=== PATIENT | female | born 1975 | race African-American/Black ===

== ENCOUNTER 2020-09-18 21:43 | Emergency (ER) | payer OTHER ==
[~2020-09-18] VITALS: Ht 162.6 cm; Wt 102.1 kg
[~2020-09-18 21:43] MED LIST: AFEDITAB CR30 MG PO; ASPIRIN325 PO; CARVEDILOL25 MG PO; COREG25 MG PO; DIPHENHIST50 MG PO; HYDRALAZINE 2525 MG PO; HYDROCHLOROTHIA25 M1 PO; LASIX 20 MG TAB20 MG PO; NIFEDIPINE ER30 M1 PO; NORVASC5 MG PO
[2020-09-18 21:57] VITALS: BP 120/72
[2020-09-18 22:32] LABS: CALCIUM 8.5 mg/dL (8.5-10.1); CREATININE 1.4 mg/dL (0.6-1.0)
[2020-09-18 22:33] LABS: POTASSIUM 4.2 mmol/L (3.5-5.1)
[2020-09-18 22:40] LABS: ALBUMIN 3.2 g/dL (3.4-5.0); TOTAL BILIRUBIN 0.3 mg/dL (0.2-1.0); TOTAL PROTEIN 6.9 g/dL (6.4-8.2)
[2020-09-18 22:41] LABS: TROPONIN-I 0.61 ng/mL (<0.06)
[2020-09-18 23:48] LABS: BE(vivo) -4.4 mmol/L (-2 to +3); HCO3 19.6 mmol/L (22.0-26.0); PCO2 31.6 mmHg (35.0-45.0); PO2 263.9 mmHg (80.0-100.0); pH 7.411 (7.360-7.450); sO2 99.6 % (92.0-98.0)
[2020-09-19 00:38] LABS: PROTIME 10.1 Seconds (9.3-11.4)
[2020-09-19 00:50] LABS: ABSOLUTE NEUTROPHILS 5.9 thou/uL (1.4-8.2); EOSINOPHILS 0.2 % (0.0-3.0); HEMATOCRIT 27.7 % (37.0-47.0); HEMOGLOBIN 8.2 gm/dL (12.0-15.0); LYMPHOCYTES 7.1 % (24.0-44.0); MCH 23.2 pg (26.0-34.0); MCHC 29.7 g/dL (28.0-37.0); MCV 78.3 fL (80.0-100.0); MONOCYTES 3.3 % (1.0-8.0); PLATELET COUNT 308 thou/uL (150-400); POLYS 88.4 % (36.0-66.0); RBC 3.54 mil/uL (4.20-5.00); WBC 6.7 thou/uL (4.0-11.0)
[2020-09-19 05:57] LABS: HEMATOCRIT 23.3 % (37.0-47.0); HEMOGLOBIN 7.2 gm/dL (12.0-15.0); MCH 23.2 pg (26.0-34.0); MCHC 31.1 g/dL (28.0-37.0); MCV 74.8 fL (80.0-100.0); RBC 3.11 mil/uL (4.20-5.00); RDW 18.7 % (10.5-14.5); WBC 7.1 thou/uL (4.0-11.0)
[2020-09-19 06:28] LABS: CALCIUM 8.5 mg/dL (8.5-10.1); CREATININE 1.5 mg/dL (0.6-1.0); POTASSIUM 3.4 mmol/L (3.5-5.1)
[2020-09-19 07:08] LABS: TROPONIN-I 1.14 ng/mL (<0.06)
--- NOTE | 2020-09-19 07:20 | EKG ---
[place] [address] [facility] [place] [address] ELECTROCARDIOGRAM REPORT Name: VON CLEMONS Room #: 170-11 ADM IN M.R.#: [id number] Admission: 09/18/20 Attend Phys: Alexandra Montana MD Discharge: Date of : 71 Report #: [id number] [facility] ED Test Date: 2020-09-18 Test Time: 21:44:59 Pat Name: VON CLEMONS Department: Room: 170 Gender: F [employer] Work[employer]: terell : 1975 Requested By: Erik Tolbert Order Number: [id number] MD: Magdi Siddiqui Measurements Intervals [place] Rate: 106 P: 33 NV: 156 QRS: 41 QRSD: 99 T: 176 QT: 366 QTc: 486 Interpretive Statements Sinus tachycardia Abnormal T, consider ischemia, diffuse leads Compared to ECG 10/10/2016 08:53:21 No significant changes found Electronically Signed On 09-19-2020 7:20:15 [employer] by Magdi Siddiqui [email or web address] <ELECTRONICALLY SIGNED> By: Magdi Siddiqui MD, [facility] 09/19/20 0720 [id number] Magdi Siddiqui MD, FACC /EPI
[2020-09-19 09:54] LABS: OBSERVED RETIC COUNT 2.23 % (0.6-2.6)
[2020-09-19 09:56] LABS: % SATURATION 3 % (20-39); CHOLESTEROL 162 mg/dL (<200); HDL CHOLESTEROL 34 mg/dL (>40); IRON 10 ug/dL (50-170); LDL CHOLESTEROL 81 mg/dL (<100); TC:HDL 4.8 Ratio (Not establshd); TIBC 362 ug/dL (250-450); TRIGLYCERIDE 235 mg/dL (<150); VLDL 47 mg/dL (<40)
--- NOTE | 2020-09-19 10:57 | 2DMMODE ---
[facility] [place] [address] 2 D/M-MODE ECHOCARDIOGRAM Name: VON CLEMONS Room #: 170-17 ADM IN M.R.#: [id number] Admission: 09/18/20 Attend Phys: Alexandra Montana MD Discharge: Date of : 71 Report #: [id number] THIS REPORT FOR: cc: Vadim Caceres MD, Nidal MD Park, Jin S. MD ~ APPROVED REPORT Study performed: 09/19/2020 09:09:31 EXAM: Comprehensive 2D, Doppler, and color-flow Echocardiogram Patient Location: ER Room #: 11 Status: routine BSA: 2.06 HR: 83 bpm BP: 126/66 mmHg Rhythm: NSR Other Information Study Quality: Fair Technically limited study due to body habitus, , patient on Bipap. Indications Congestive Heart Failure Dyspnea Chest Pain Hypertension/HDD 2D Dimensions IVSd: 12.06 (7-11mm) LVOT Diam: 17.46 (18-24mm) LVDd: 44.10 mm PWd: 13.31 (7-11mm) Ascending Ao: 31.49 (22-36mm) LVDs: 27.11 (25-40mm) Aortic Root: 25.19 mm IVC: 20.00 mm Aortic Valve AoV Peak Cade.: 1.75 m/s AO Peak Gr.: 12.25 mmHg LVOT Max P.07 mmHg LVOT Max V: 1.01 m/s AGUS Vmax: 1.38 cm2 Mitral Valve [facility] [address] [place] [address] 2 D/M-MODE ECHOCARDIOGRAM Name: VON CLEMONS Room #: 17017 ADM IN M.R.#: [id number] Admission: 09/18/20 Attend Phys: Alexandra Montana, Discharge: Date of : 71 Report #: [id number] E/A Ratio: 0.9 MV Decel. Time: 396.09 ms MV E Max Cade.: 0.97 m/s MV A Cade.: 1.07 m/s MV PHT: 114.87 ms IVRT: 110.73 ms Pulmonary Valve PV Peak Cade.: 1.26 m/s PV Peak Gr.: 6.32 mmHg Pulmonary Vein P Vein S: 0.45 m/s P Vein A: 0.21 m/s P Vein D: 0.28 m/s P Vein A Dur.: 101.5 msec P Vein S/D Ratio: 1.61 Tricuspid Valve TR Peak Cade.: 3.23 m/s TR Peak Gr.: 41.81 mmHg PA Pressure: 52.00 mmHg Left Ventricle The left ventricle is normal size. Mild concentric left ventricular hypertrophy. Left ventricular systolic function is hyperdynamic. LVEF is 65-70%. Moderate diastolic dysfunction is present (pseudonormal filling). Right Ventricle The right ventricle is normal size. The right ventricular systolic function is normal. Atria The left atrium size is normal. The right atrium size is normal. Aortic Valve The aortic valve is normal in structure. No aortic regurgitation is present. There is no aortic valvular stenosis. Mitral Valve The mitral valve is normal in structure. Mild mitral regurgitation. No evidence of mitral valve stenosis. Tricuspid Valve The tricuspid valve is normal in structure. There is mild tricuspid regurgitation. Estimated PAP 47 mmHg. [facility] [place] [address] 2 D/M-MODE ECHOCARDIOGRAM Name: DEONTEVON Room #: 17017 ADM IN M.R.#: [id number] Admission: 09/18/20 Attend Phys: Alexandra Montana, Discharge: Date of : 71 Report #: [id number] Pulmonic Valve The pulmonary valve is normal in structure. There is no pulmonic valvular regurgitation. Great Vessels The aortic root is normal in size. IVC is dilated and collapses <50% with inspiration. Pericardium Trace pericardial effusion. <Conclusion> The left ventricle is normal size. Mild concentric left ventricular hypertrophy. Left ventricular systolic function is hyperdynamic. Moderate diastolic dysfunction is present (pseudonormal filling). The right ventricle is normal size. The left atrium size is normal. The aortic valve is normal in structure. Mild mitral regurgitation. There is mild tricuspid regurgitation. Estimated PAP 47 mmHg. <ELECTRONICALLY SIGNED> By: Balaji Beltran MD 09/19/20 1057 56 56 Balaji Beltran MD /INF
[2020-09-19 12:00] VITALS: BP 101/47
--- NOTE | 2020-09-19 12:25 | NUR ---
S/W DR KOENIG TO ALERT THAT PT IS OUT OF NETWORK & WILL NEED TO TRANSFER TO A NETWORK FACILITY IF AVAILABLE. S/W BRENDA Maharaj FROM PT'S INSURANCE & NETWORK FACILITIES ARE ANY [facility] OR [facility]. PT HAS RECENTLY BEEN AT [facility]. S/W THE ER & THEY WILL CHECK WITH PT HER PREFERENCES. S/W JOSE MANUEL AT [facility] TRANSFER [facility] & FAXED FACE SHEET, ER REPORT, H&P, CARDIOLY CONSULT WITH LABS & X-RAY REPORTS. AWAITING RESPONSE BACK FROM THE TRANSFER CENTER.
--- NOTE | 2020-09-19 13:59 | NUR ---
RECEIVED CALL FROM BRANDAN FROM [facility] & PT HAS BEEN ACCEPTED BY DR TANYA SCOTT AT [facility]. S/W ALLISON IN ER & ER WILL ARRANGE TRANSPORT BY AMBULANCE & COMPLETE TRANSFER FORM. PT WILL GO TO ICU BED 2006 & REPORT CAN BE CALLED TO [phone]. S/W RADIOLOGY TO CLOUD OVER PT'S X-RAYS TO [facility]. DR KOENIG AWARE & HAS S/W DR SCOTT.
[2020-09-19] MEDS ORDERED: VENTOLIN HFA 1818 GM INH (14:52)
[2020-09-19] MEDS ORDERED: AMLODIPINE BESY10 MG PO (14:52)
[2020-09-19] MEDS ORDERED: TIZANIDINE4 MG/1 TA1 PO (14:52)
--- NOTE | 2020-09-19 16:49 | NUR ---
45-year-old female who presents to the ED with dyspnea. Patient was in her usual state of health until 1 week prior to presentation when she started to notice increasing dyspnea. A albuterol inhaler was given without much relief. With worsening symptoms including cough, chills she presents to the ED. Patient is normally followed at [facility], she reports a recent heart catheterization. Chest x-ray shows moderate bilateral ground glass opacities. COVID-19 PCR and antigen is negative. Patient admitted to a hospitalist with pulmonary consult and with: Acute hypoxic respiratory failure, Acute on chronic systolic heart failure, Acute kidney injury/chronic kidney disease, Anemia, microcytic and hypochromic, as well as hypertension. Patient is listed at AO x4 but her sister Tram Borjas is listed as next of kin at [phone]. CM will continue to follow for discharge needs.
[2020-09-19 16:59] VITALS: BP 142/79
== END 2020-09-19 16:55 | disposition short-term general hospital (02) ==
LOC: ER 21:43 → EROBS 23:29 → ER 23:29 → EROBS 09-19 10:43 → ER 09-19 16:55
PROVIDERS: Emergency Medicine; Nurse Practitioner Adult Health; Nurse Practitioner Family
DX: I11.0 Hypertensive heart disease with heart failure (principal); I50.9 Heart failure, unspecified; F17.210 Nicotine dependence, cigarettes, uncomplicated; Z79.82 Long term (current) use of aspirin; Z79.899 Other long term (current) drug therapy; Z88.2 Allergy status to sulfonamides; Z88.8 Allergy status to other drugs, medicaments and biological substances; Z20.828 Contact with and (suspected) exposure to other viral communicable diseases